=== PATIENT | female | born 1995 | race African-American/Black ===

== ENCOUNTER 2017-12-15 10:00 | Inpatient (IN) ==
[2017-12-15] MEDS: LACTATED RINGERS 1,000 ML IV SCH ×2 (10:40→14:09)
[2017-12-15] MEDS ORDERED: CITRIC ACID/SODIUM CITRATE 30 ML UDCUP PO ONE (10:54)
[2017-12-15] MEDS ORDERED: FAMOTIDINE 20 MG/2 ML VIAL IV ONE (10:54)
[2017-12-15] MEDS ORDERED: ceFAZolin 2,000 MG in PREMIX 1 EACH IV ONE (10:54)
[2017-12-15 11:17] LABS: Basophils % 0.3 % (0.0-0.8); Eosinophils # 0.1 10*3/uL (0.0-0.87); Eosinophils % 2.1 % (0.00-10.9); Immature Granulocytes % 0.3 %; Immature Granulocytes Absolute 0.02 #; Lymphocytes # 1.3 10*3/uL (1.4-4.0); Mean Corpuscular HGB Conc 33.3 GM/DL (32-36); Mean Corpuscular Hemoglobin 26 PG (27-34); Mean Corpuscular Volume 78.3 FL (87-102); Mean Platelet Volume 9.7 FL (9.6-12.0); Monocytes # 0.7 10*3/uL (0.11-0.8); Monocytes % 11.3 % (1.7-12.7); Neutrophils # 3.6 10*3/uL (1.4-7.4); Platelet Count 259 T/CUMM (130-400); Red Blood Count 3.83 MC/CUMM (3.8-5.5); Red Cell Distribution Width 16.8 % (9.3-17.3); White Blood Count 5.8 T/CUMM (4-12)
[2017-12-15 11:25] LABS: INR 0.9; PT Patient Result 9.5 SECS; Partial Thromboplastin Time 27.1 SECS (0-40)
[2017-12-15] MEDS ORDERED: fentaNYL 100 MCG/2 ML VIAL ONE (12:00)
[2017-12-15] MEDS ORDERED: MORPHINE 10 MG/10 ML VIAL ONE (12:01)
[2017-12-15] MEDS ORDERED: ONDANSETRON 4 MG/2 ML VIAL ONE (12:01)
[2017-12-15] MEDS ORDERED: BUPIVACAINE SPINAL 0.75% 2 ML AMP SPINAL ONE (12:01)
[2017-12-15] MEDS ORDERED: OXYTOCIN 10 UNIT/ML VIAL ONE (12:31)
[2017-12-15] MEDS ORDERED: OXYTOCIN/LR 30 UNIT/1,000 ML BAG IV ONE (12:33)
[2017-12-15] MEDS ORDERED: OXYTOCIN 10 UNIT/ML VIAL IM ONE (12:33)
[2017-12-15 13:08] LABS: Alanine Aminotransferase 20 U/L (13-56); Albumin 2.4 G/DL (3.4-5.0); Alkaline Phosphatase 150 U/L (45-117); Aspartate Amino Transferase 25 U/L (0-37); Bilirubin,Total < 0.39 MG/DL (0.2-1.0); Blood Urea Nitrogen 5 MG/DL (7-18); Calcium 8.8 MG/DL (8.5-10.1); Glucose 83 MG/DL (74-106); Osmolality,Calculated 272.5 MOS/KG (273-304); Potassium 3.9 MMOL/L (3.5-5.1); Sodium 139 MMOL/L (136-145); Total Protein 6.5 G/DL (6.4-8.3)
[2017-12-15] MEDS ORDERED: ACETAMINOPHEN 325 MG TABLET PO PRN (14:05)
[2017-12-15] MEDS ORDERED: ONDANSETRON 4 MG/2 ML VIAL IV PRN (14:05)
[2017-12-15] MEDS ORDERED: RHO(D) IMMUNE GLOBULIN 300 MCG SYRINGE IM ONE (14:05)
[2017-12-15] MEDS ORDERED: OXYTOCIN/LR 20 UNIT/1,000 ML BAG IV ONE (14:05)
[2017-12-15] MEDS ORDERED: MIDAZOLAM 2 MG/2 ML VIAL ONE (14:09)
[2017-12-15 14:15] LABS: Cord Arterial Blood HCO3 20.5 MMOL/L
[2017-12-15 14:17] LABS: Cord Venous Blood HCO3 22.9 MMOL/L; Cord Venous Blood PO2 40.8 MMHG
[2017-12-15] MEDS ORDERED: LACTATED RINGERS 1,000 ML IV SCH (14:30)
[2017-12-15 15:03] LABS: Apearance,Urine CLEAR (Clear); Bilirubin,Urine Negative (Negative); Blood, Urine Negative (Negative); Glucose,Urine (UA) Negative (Negative); Ketones,Urine 5 mg/dL (Negative); Nitrite,Urine Negative (Negative); Protein,Urine Negative; RBC,Urine <1 /HPF (0-4); Urine Color Straw (Yellow); Urine Specific Gravity 1.004 (1.001-1.035); Urine Urobilinogen < 2.0 EU/DL (0.2-1.0); WBC,Urine <1 /HPF (0-6)
[2017-12-15] MEDS: ceFAZolin 1,000 MG in SYRINGE 1 EACH IV SCH (21:33)
[2017-12-15] MEDS: DOCUSATE SODIUM 100 MG CAPSULE PO SCH (21:36)
[2017-12-15 21:45] LABS: Basophils % 0.3 % (0.0-0.8); Eosinophils # 0.1 10*3/uL (0.0-0.87); Eosinophils % 0.9 % (0.00-10.9); Hematocrit 31.2 VOL% (35.7-47.0); Hemoglobin 10.5 GM/DL (12.0-16.0); Immature Granulocytes % 0.4 %; Immature Granulocytes Absolute 0.04 #; Lymphocytes # 1.4 10*3/uL (1.4-4.0); Lymphocytes % 13.9 % (21.3-54.2); Mean Corpuscular HGB Conc 33.7 GM/DL (32-36); Mean Corpuscular Hemoglobin 26 PG (27-34); Mean Corpuscular Volume 77.2 FL (87-102); Monocytes % 10.4 % (1.7-12.7); Neutrophils # 7.2 10*3/uL (1.4-7.4); Neutrophils % 74.1 % (38.7-73.9); Platelet Count 227 T/CUMM (130-400); Red Blood Count 4.04 MC/CUMM (3.8-5.5); Red Cell Distribution Width 16.6 % (9.3-17.3); White Blood Count 9.8 T/CUMM (4-12)
[2017-12-15] MEDS: LABETALOL 100 MG TABLET PO SCH (23:11)
[2017-12-16] MEDS: ceFAZolin 1,000 MG in SYRINGE 1 EACH IV SCH (04:29)
[2017-12-16] MEDS: IBUPROFEN 800 MG TABLET PO PRN ×2 (07:42→18:57)
[2017-12-16 07:58] LABS: Basophils % 0.3 % (0.0-0.8); Eosinophils # 0.2 10*3/uL (0.0-0.87); Eosinophils % 1.7 % (0.00-10.9); Hematocrit 28.3 VOL% (35.7-47.0); Hemoglobin 9.4 GM/DL (12.0-16.0); Immature Granulocytes % 0.3 %; Immature Granulocytes Absolute 0.03 #; Lymphocytes # 1.2 10*3/uL (1.4-4.0); Lymphocytes % 13.6 % (21.3-54.2); Mean Corpuscular HGB Conc 33.2 GM/DL (32-36); Mean Corpuscular Hemoglobin 26 PG (27-34); Mean Corpuscular Volume 77.1 FL (87-102); Mean Platelet Volume 9.7 FL (9.6-12.0); Monocytes # 0.8 10*3/uL (0.11-0.8); Monocytes % 9.3 % (1.7-12.7); Neutrophils # 6.7 10*3/uL (1.4-7.4); Neutrophils % 74.8 % (38.7-73.9); Platelet Count 201 T/CUMM (130-400); Red Blood Count 3.67 MC/CUMM (3.8-5.5); Red Cell Distribution Width 16.5 % (9.3-17.3)
[2017-12-16] MEDS: MULTIVITAMIN (PRENATAL) TABLET PO SCH (09:08)
[2017-12-16] MEDS: DOCUSATE SODIUM 100 MG CAPSULE PO SCH ×2 (09:08→21:43)
[2017-12-16] MEDS: LABETALOL 100 MG TABLET PO SCH ×2 (09:08→21:43)
[2017-12-16] MEDS: SIMETHICONE CHEW 80 MG TABLET PO PRN ×2 (09:12→21:43)
[2017-12-16] MEDS: MAGNESIUM HYDROXIDE SUSP 30 ML UDCUP PO PRN ×2 (09:12→21:43)
[2017-12-17 07:26] VITALS: BP 121/65
[2017-12-17] MEDS: IBUPROFEN 800 MG TABLET PO PRN (08:35)
[2017-12-17] MEDS: MAGNESIUM HYDROXIDE SUSP 30 ML UDCUP PO PRN (08:35)
[2017-12-17] MEDS: DOCUSATE SODIUM 100 MG CAPSULE PO SCH (08:35)
[2017-12-17] MEDS: SIMETHICONE CHEW 80 MG TABLET PO PRN (08:35)
[2017-12-17] MEDS: MULTIVITAMIN (PRENATAL) TABLET PO SCH (08:35)
[2017-12-17] MEDS: LABETALOL 100 MG TABLET PO SCH (11:48)
[2017-12-17] MEDS ORDERED: DIPH/TET/ACEL PERT BOOSTER VACCINE 0.5 ML VIAL IM ONE (12:01)
== END 2017-12-17 13:50 | disposition home or self-care (01) | DRG 540 ==
LOC: N.LDOUT 10:00 → N.LD 10:05 → N.OB 15:44
PROVIDERS: ADMIT Obstetrics & Gynecology; ATTEND Obstetrics & Gynecology
PROC: LDCSECT (ICD-10-PCS; 2017-12-15 12:30)

== ENCOUNTER 2018-11-17 07:04 | Inpatient (IN) ==
[2018-11-17] MEDS ORDERED: ceFAZolin 2,000 MG in PREMIX 1 EACH IV ONE (07:20)
[2018-11-17] MEDS ORDERED: CITRIC ACID/SODIUM CITRATE 30 ML UDCUP PO ONE (07:20)
[2018-11-17] MEDS ORDERED: FAMOTIDINE 20 MG/2 ML VIAL IV ONE (07:20)
[2018-11-17] MEDS ORDERED: OXYTOCIN 10 UNIT/ML VIAL IM ONE (07:25)
[2018-11-17] MEDS ORDERED: OXYTOCIN/LR 30 UNIT/1,000 ML BAG IV ONE (07:26)
[2018-11-17] MEDS ORDERED: LACTATED RINGERS 1,000 ML IV SCH ×2 (07:30→11:00)
[2018-11-17 07:40] LABS: Basophils % 0.3 % (0.0-0.8); Eosinophils # 0.2 10*3/uL (0.0-0.87); Eosinophils % 2.3 % (0.00-10.9); Hematocrit 31.2 VOL% (35.7-47.0); Immature Granulocytes % 0.7 %; Immature Granulocytes Absolute 0.05 #; Lymphocytes # 1.9 10*3/uL (1.4-4.0); Lymphocytes % 25.7 % (21.3-54.2); Mean Corpuscular HGB Conc 32.1 GM/DL (32-36); Mean Corpuscular Volume 81.5 FL (87-102); Mean Platelet Volume 9.2 FL (9.6-12.0); Platelet Count 265 T/CUMM (130-400); Red Blood Count 3.83 MC/CUMM (3.8-5.5); Red Cell Distribution Width 16.6 % (9.3-17.3); White Blood Count 7.4 T/CUMM (4-12)
[2018-11-17] MEDS ORDERED: LACTATED RINGERS 1,000 ML IV ONE (08:02)
[2018-11-17 08:10] LABS: Alanine Aminotransferase 15 U/L (13-56); Albumin 2.4 G/DL (3.4-5.0); Alkaline Phosphatase 195 U/L (45-117); Aspartate Amino Transferase 19 U/L (0-37); Bilirubin,Total < 0.39 MG/DL (0.2-1.0); Blood Urea Nitrogen 7 MG/DL (7-18); Calcium 8.4 MG/DL (8.5-10.1); Glucose 82 MG/DL (74-106); Osmolality,Calculated 275.4 MOS/KG (273-304); Total Protein 6.4 G/DL (6.4-8.3)
[2018-11-17] MEDS ORDERED: fentaNYL 100 MCG/2 ML VIAL ONE (08:20)
[2018-11-17] MEDS ORDERED: ONDANSETRON 4 MG/2 ML VIAL ONE (08:21)
[2018-11-17] MEDS ORDERED: BUPIVACAINE SPINAL 0.75% 2 ML AMP SPINAL ONE (08:21)
[2018-11-17] MEDS ORDERED: MORPHINE 10 MG/10 ML VIAL ONE (08:21)
[2018-11-17 09:00] LABS: HIV Antigen/Antibody Result Nonreactive (Nonreactive); Hepatitis B Surface Ag Quant < 0.10 Index; Hepatitis B Surface Ag Result Negative (Negative)
[2018-11-17] MEDS ORDERED: EPINEPHrine 1 MG/ML VIAL ONE (10:11)
[2018-11-17] MEDS ORDERED: DEXAMETHASONE 4 MG/1 ML VIAL ONE (10:12)
[2018-11-17] MEDS ORDERED: BUPIVACAINE 0.5% 50 ML VIAL ONE (10:12)
[2018-11-17 10:37] LABS: Cord Arterial Blood HCO3 26.2 MMOL/L
[2018-11-17 10:38] LABS: Cord Venous Blood HCO3 22.1 MMOL/L; Cord Venous Blood PO2 30.5
[2018-11-17] MEDS ORDERED: ACETAMINOPHEN 325 MG TABLET PO PRN (10:42)
[2018-11-17] MEDS ORDERED: MAGNESIUM HYDROXIDE SUSP 30 ML UDCUP PO PRN (10:42)
[2018-11-17] MEDS ORDERED: SIMETHICONE CHEW 80 MG TABLET PO PRN (10:42)
[2018-11-17] MEDS ORDERED: ONDANSETRON 4 MG/2 ML VIAL IV PRN (10:42)
[2018-11-17] MEDS ORDERED: OXYTOCIN/LR 20 UNIT/1,000 ML BAG IV ONE (10:42)
[2018-11-17 10:48] LABS: Apearance,Urine CLEAR (Clear); Bacteria,Urine Occasional /HPF (Few); Bilirubin,Urine Negative (Negative); Blood, Urine Negative (Negative); Glucose,Urine (UA) Negative (Negative); Ketones,Urine Negative (Negative); Mucus,Urine Occasional /LPF (Occasional); Nitrite,Urine Negative (Negative); Protein,Urine Negative; Squamous Epithelial Cell,Urine Occasional /HPF (0-10); Urine Color Straw (Yellow); Urine Specific Gravity 1.008 (1.001-1.035); Urine Urobilinogen < 2.0 EU/DL (0.2-1.0); WBC,Urine 1 /HPF (0-6)
[2018-11-17] MEDS ORDERED: RHO(D) IMMUNE GLOBULIN 300 MCG SYRINGE IM ONE (11:00)
[2018-11-17 11:01] LABS: Barbiturates Screen,Urine Negative (Negative); Benzodiazepines Screen,Urine Negative (Negative); Cannabinoid Screen,Urine Positive (Negative); Opiate Screen,Urine Negative (Negative); Phencyclidine Screen,Urine Negative (Negative)
[2018-11-17] MEDS ORDERED: PROMETHAZINE 25 MG/1 ML VIAL IM ONE (11:30)
[2018-11-17] MEDS ORDERED: diphenhydrAMINE 2% CREAM 28 GM TUBE TOP PRN (15:23)
[2018-11-17] MEDS: ceFAZolin 1,000 MG in SYRINGE 1 EACH IV SCH (15:26)
[2018-11-17] MEDS: IBUPROFEN 800 MG TABLET PO PRN (16:49)
[2018-11-17 18:52] LABS: Basophils % 0.1 % (0.0-0.8); Hematocrit 30.4 VOL% (35.7-47.0); Hemoglobin 10.1 GM/DL (12.0-16.0); Immature Granulocytes % 0.5 %; Immature Granulocytes Absolute 0.07 #; Lymphocytes # 1.2 10*3/uL (1.4-4.0); Lymphocytes % 8.7 % (21.3-54.2); Mean Corpuscular HGB Conc 33.2 GM/DL (32-36); Mean Corpuscular Volume 79.6 FL (87-102); Mean Platelet Volume 9.5 FL (9.6-12.0); Monocytes % 7.1 % (1.7-12.7); Neutrophils % 83.6 % (38.7-73.9); Platelet Count 241 T/CUMM (130-400); Red Blood Count 3.82 MC/CUMM (3.8-5.5); Red Cell Distribution Width 16.2 % (9.3-17.3); White Blood Count 13.4 T/CUMM (4-12)
[2018-11-17] MEDS: DOCUSATE SODIUM 100 MG CAPSULE PO SCH (23:17)
[2018-11-18] MEDS: ceFAZolin 1,000 MG in SYRINGE 1 EACH IV SCH (00:11)
[2018-11-18] MEDS: IBUPROFEN 800 MG TABLET PO PRN ×3 (03:34→22:43)
[2018-11-18 05:09] LABS: Basophils % 0.2 % (0.0-0.8); Eosinophils # 0.1 10*3/uL (0.0-0.87); Eosinophils % 0.8 % (0.00-10.9); Hematocrit 28.4 VOL% (35.7-47.0); Hemoglobin 9.5 GM/DL (12.0-16.0); Immature Granulocytes % 0.5 %; Immature Granulocytes Absolute 0.07 #; Lymphocytes # 2.1 10*3/uL (1.4-4.0); Lymphocytes % 15.5 % (21.3-54.2); Mean Corpuscular HGB Conc 33.5 GM/DL (32-36); Mean Platelet Volume 10.2 FL (9.6-12.0); Monocytes % 10.4 % (1.7-12.7); Neutrophils % 72.6 % (38.7-73.9); Platelet Count 251 T/CUMM (130-400); Red Blood Count 3.55 MC/CUMM (3.8-5.5); Red Cell Distribution Width 16.2 % (9.3-17.3); White Blood Count 13.2 T/CUMM (4-12)
[2018-11-18] MEDS ORDERED: METOCLOPRAMIDE 10 MG TABLET ONE (08:02)
[2018-11-18] MEDS: DOCUSATE SODIUM 100 MG CAPSULE PO SCH ×2 (08:11→21:28)
[2018-11-18] MEDS: METOCLOPRAMIDE 10 MG TABLET PO SCH ×2 (08:17→16:43)
[2018-11-18] MEDS: MULTIVITAMIN (PRENATAL) TABLET PO SCH (09:03)
[2018-11-18] MEDS ORDERED: METOCLOPRAMIDE 10 MG TABLET PO SCH (20:00)
[2018-11-19] MEDS: METOCLOPRAMIDE 10 MG TABLET PO SCH ×2 (04:29→09:40)
[2018-11-19 07:38] VITALS: BP 119/70
[2018-11-19] MEDS: DOCUSATE SODIUM 100 MG CAPSULE PO SCH (09:40)
[2018-11-19] MEDS: IBUPROFEN 800 MG TABLET PO PRN (09:40)
[2018-11-19] MEDS: MULTIVITAMIN (PRENATAL) TABLET PO SCH (09:42)
[2018-11-19] MEDS ORDERED: DIPH/TET/ACEL PERT BOOSTER VACCINE 0.5 ML VIAL IM ONE (11:16)
== END 2018-11-19 13:00 | disposition home or self-care (01) | DRG 540 ==
LOC: N.LD 07:04 → N.OB 14:19
PROVIDERS: ADMIT Obstetrics & Gynecology; ATTEND Obstetrics & Gynecology